=== PATIENT | female | born 1985 | race Caucasian/White ===

== ENCOUNTER 2024-03-17 14:07 | Emergency (ER) | payer OTHER ==
[2024-03-17 14:37] VITALS: TEMP 98.2
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
[2024-03-17 15:34] LABS: Basophils # (A) 0.1 k/uL (0-0.2); Basophils % (A) 0 %; Eosinophils # (A) 0.1 k/uL (0-0.7); Eosinophils % (A) 1 %; HCT 41.6 % (34.0-46.0); HGB 13.6 gm/dL (11.4-16.0); Lymphocytes # (A) 1.9 k/uL (1.0-4.8); Lymphocytes % (A) 14 %; MCH 31.4 pg (25.0-35.0); MCHC 32.7 g/dL (31.0-37.0); MCV 95.9 fL (80.0-100.0); Mean Platelet Volume 7.3; Monocytes # (A) 0.6 k/uL (0-1.0); Monocytes % (A) 5 %; Neutrophils # (A) 10.7 k/uL (1.3-7.7); Neutrophils % (A) 79 %; Platelet Count 296 k/uL (150-450); RBC 4.34 m/uL (3.80-5.40); RDW 12.5 % (11.5-15.5); WBC 13.6 k/uL (3.8-10.6)
[2024-03-17] MEDS: KETOROLAC 15 MG/ML 1 ML VIAL IVP STA (15:38)
[2024-03-17 15:42] LABS: INR 0.9 (<1.2); Partial Thromboplastin Time 25.3 sec (22.0-30.0); Prothrombin Time 10.1 sec (10.0-12.5)
[2024-03-17 15:49] LABS: ALT 13 U/L (4-34); African American GFR (CKD) >90 (>60 ml/min/1.73 sqM); Albumin 4.3 g/dL (3.5-5.0); Anion Gap 6 mmol/L; Blood Urea Nitrogen 14 mg/dL (7-17); Calcium 9.2 mg/dL (8.4-10.2); Carbon Dioxide 27 mmol/L (22-30); Chloride 105 mmol/L (98-107); Glucose 103 mg/dL (74-99); Non-African American GFR(CKD) >90 (>60 ml/min/1.73 sqM); Sodium 138 mmol/L (137-145); Total Bilirubin 1.2 mg/dL (0.2-1.3); Total Protein 7.6 g/dL (6.3-8.2)
[2024-03-17 15:50] LABS: AST 23 U/L (14-36); Alkaline Phosphatase 61 U/L (38-126); Magnesium 2.1 mg/dL (1.6-2.3); Potassium 3.9 mmol/L (3.5-5.1)
--- NOTE | 2024-03-17 16:08 | XR ---
EXAMINATION TYPE: XR chest 2V DATE OF EXAM: 03/17/2024 3:47 PM COMPARISON: None. CLINICAL INDICATION: Female, 38 years old with history of CP, TECHNIQUE: XR chest 2V view(s) obtained. FINDINGS: The heart size is normal. The pulmonary vasculature is normal. The lungs are clear. IMPRESSION: 1. No acute pulmonary process. [facility], , 03/17/2024 4:06 PM
[2024-03-17 16:47] VITALS: BP 99/62; PULSE 76; RESP 18
== END 2024-03-17 16:47 | disposition home or self-care (01) ==
LOC: EC 14:07
DX: R07.89 Other chest pain (principal); F17.290 Nicotine dependence, other tobacco product, uncomplicated
CPT/HCPCS: 36415; 93005; 80053; 83735; 84484; 85025; 85610; 85730; 71046; 99285; 96374; J1885